=== PATIENT | female | born 1995 | race African-American/Black ===

== ENCOUNTER 2019-06-01 12:03 | Emergency (ER) | payer OTHER, SELFPAY ==
--- NOTE | ~2019-06-01 | XR_ITS ---
EXAMINATION: XR chest 2V 06/01/2019 16:01 INDICATION: Reduction of cough and congestion. Fluid. PROCEDURE: 2 view chest COMPARISON: No prior studies for comparison. FINDINGS: The lungs are clear. There is pectus excavatum. The cardiomediastinal silhouette is within normal limits. There are no pleural effusions. There is no pneumothorax suspected. IMPRESSION: 1: NO ACUTE CARDIOPULMONARY DISEASE. Reviewed, dictated and finalized at location A. T OFFICE ADMINISTRATOR
[2019-06-01 12:23] VITALS: BP 103/75; PULSE 125; RESP 18; TEMP 37.7; O2SAT 99
--- NOTE | 2019-06-01 12:31 | PC.NURSE ---
Pt provided with water and crackers for PO challenge at this time, per PA order.
--- NOTE | 2019-06-01 13:47 | ED.URI ---
HPI - URI/Sore Throat General Chief Complaint: Upper Respiratory Infection <Graham Mireles PA-C - Last Filed: 06/01/19 20:36> Stated Complaint: FLU B+, WANTS IV FLUIDS <Graham Mireles PA-C - Last Filed: 06/01/19 20:36> Time Seen by Provider: 06/01/19 12:14 <POLO Courtney Last Filed: 06/01/19 20:36> Source: patient <Graham Mireles PA-C - Last Filed: 06/01/19 20:36> Mode of arrival: ambulatory <POLO Courtney Last Filed: 06/01/19 20:36> Limitations: no limitations <Graham Mireles PA-C - Last Filed: 06/01/19 20:36> History of Present Illness HPI Narrative: Patient presents with chief complaint of wanting IV fluids after being diagnosed with flu B at the urgent care prior to arrival. Patient states that her symptoms originally began last with fever, congestion, sore throat, fatigue, headache. Patient states that her symptoms have improved except for some mild fatigue and a few episodes of vomiting since Friday. Patient states since receiving the Zofran today she has not had any additional vomiting. Patient denies any cough, chest pain, shortness of breath, urinary symptoms, fever. <Graham Mireles PA-C - Last Filed: 06/01/19 20:36> Related Data Allergies/Adverse Reactions: Allergies Allergy/AdvReac Type Severity Reaction Status Date / Time No Known Allergies Allergy Verified 06/01/19 12:27 <Graham Mireles PA-C - Last Filed: 06/01/19 20:36> Review of Systems Review of Systems: Narrative: CONSTITUTIONAL: Denies fever, chills, or sweats. EYES: Denies visual changes, redness, or discharge. ENT: Denies rhinorrhea, congestion, sore throat, or otalgia. CARDIOVASCULAR: Denies chest pain, palpitations, or edema. RESPIRATORY: Denies cough or dyspnea. GASTROINTESTINAL: Denies abdominal pain, nausea, vomiting, or diarrhea. GENITOURINARY: Denies dysuria or hematuria. SKIN: Denies rash or itching. MUSCULOSKELETAL: Denies back pain, joint pain, or myalgia. NEUROLOGIC: Denies headache, numbness, dizziness, or weakness. PSYCHIATRIC: Denies anxiety or depression. <Graham Mireles PA-C - Last Filed: 06/01/19 20:36> PMFSH Social History Social History: Social History Gender identity (if verbalized by the patient): Female <Graham Mireles PA-C - Last Filed: 06/01/19 20:36> Exam Narrative: Exam Narrative: GENERAL: Well-appearing, well-nourished, and in no acute distress. HEAD: Normocephalic, atraumatic. EYES: PERRLA and EOMI. ENT: Nares clear, no rhinorrhea or epistaxis. Lips and mucous membranes moist. Oropharynx without tonsillar hypertrophy exudate or other lesions. Bilateral TMs pearly pemberton nonbulging NECK: Supple. No adenopathy or masses. Range of motion intact CHEST: Clear to auscultation. No respiratory distress. No wheezes rales or rhonchi HEART: Regular rate and rhythm. No murmur heard. Normal peripheral pulses. ABDOMEN: Soft, nontender, nondistended, normal active bowel sounds. EXTREMITIES: Normal range of motion. No edema. SKIN: Warm, dry, no rash. NEURO: No focal deficits. Alert and oriented x3. PSYCH: Normal mood and affect. <POLO Courtney Last Filed: 06/01/19 20:36> Course Vital Signs Vital signs: Vital Signs Temperature 37.7 C H 06/01/19 12:23 Pulse Rate 125 H 06/01/19 12:23 Respiratory Rate 18 06/01/19 12:23 Blood Pressure 103/75 06/01/19 12:23 Pulse Oximetry 99 06/01/19 12:23 Temperature 37.3 C 06/01/19 14:04 Pulse Rate 80 06/01/19 16:53 Respiratory Rate 18 06/01/19 16:53 Blood Pressure 110/75 06/01/19 16:53 Pulse Oximetry 100 06/01/19 16:53 <POLO Courtney Last Filed: 06/01/19 20:36> Vital Signs Temperature 37.7 C H 06/01/19 12:23 Pulse Rate 125 H 06/01/19 12:23 Respiratory Rate 18 06/01/19 12:23 Blood Pressure 103/75 06/01/19 12:23 Pulse Oximetry 99 06/01/19 12:23 Temperature 37.3 C 06/01/19 14:04 Pulse Rate 80 06/01/19 16
--- NOTE | 2019-06-01 13:55 | PC.NURSE ---
Spoke with pt at this time who states that she is feeling okay and has held down the food and water without nausea.
[2019-06-01 14:04] VITALS: BP 107/73; PULSE 108; RESP 18; TEMP 37.3; O2SAT 98
[2019-06-01] MEDS: SODIUM CHLORIDE 0.9% IV 1,000 ML 999 ML IV CONT ×2 (14:23→15:48)
[2019-06-01 14:24] LABS: Hematocrit 43.9 % (37.0-47.0); Hemoglobin 14.5 g/dL (12.0-15.0); Immature Granulocyte Absolute 0.01 K/mm3 (0.00-0.031); Immature Granulocyte Percent A 0.3 % (0-0.5); Lymphocytes Absolute Auto 1.07 K/mm3 (0.9-3.2); Lymphocytes Percent Auto 31.2 % (18.3-44.2); Mean Corpuscular Hemoglobin 29.3 pg (26-34); Mean Corpuscular Volume 88.7 fl (80-100); Mean Platelet Volume 10.9 fl (7.4-10.4); Monocytes Absolute Auto 0.3 K/mm3 (0.1-0.6); Monocytes Percent Auto 9.9 % (2.6-8.5); Neutrophils Percent Auto 58.6 % (45.5-73.1); Platelet Count Result 142 k/mm3 (150-375); Red Blood Count 4.95 M/mm3 (4.2-5.4); Red Cell Distribution Width 11.9 % (11.5-14.5); White Blood Count 3.4 K/mm3 (4.5-10.0)
[2019-06-01 14:29] LABS: Add Urine Microscopic? YES; Appearance Urine Clear (Clear); Bilirubin Urine Negative (Negative); Blood Urine Negative (Negative); Color Urine Yellow (Yellow); Glucose Urine UA Negative (Negative); Ketones Urine 2+ mg/dL (Negative); Leukocyte Esterase Ur Trace LEU/UL (Negative); Mucus Urine Few /lpf; Nitrate Urine Negative (Negative); Protein Urine 3+ mg/dL (Negative); RBC Urine 0-2 /hpf (0-2); Specific Grav Ur 1.018 (1.001-1.035); Squamous Epithelial Cell Urine Moderate /hpf (Few); Urobilinogen Urine Negative mg/dL (<2.0)
[2019-06-01 14:35] LABS: Alanine Aminotransferase 77 U/L (4-35); Albumin Level 4.7 g/dL (3.5-5.1); Alkaline Phosphatase 55 U/L (38-126); Aspartate Amino Transferase 115 U/L (14-36); Bilirubin,Total 0.7 mg/dL (0.2-1.3); Blood Urea Nitrogen 8 mg/dL (7-17); Calcium 9.2 mg/dL (8.4-10.2); Carbon Dioxide 25 mmol/L (22-30); Chloride 95 mmol/L (98-107); Estimated CRCL calculation 124 ml/min; Estimated Glomerular Filt Rate > 60; Glucose 107 mg/dL (65-105); Potassium 3.7 mmol/L (3.4-5.0); Sodium 134 mmol/L (137-145)
[2019-06-01 15:20] VITALS: BP 109/65; PULSE 86
[2019-06-01 15:21] VITALS: BP 107/72; BP 114/71; PULSE 102; PULSE 110
--- NOTE | 2019-06-01 15:23 | ECG_ITS ---
Measurements Intervals [place] Rate: 77 P: 81 VA: 139 QRS: 75 QRSD: 90 T: 41 QT: 370 QTc: 421 Interpretive Statements SINUS RHYTHM WITH SINUS ARRHYTHMIA CANNOT RULE OUT SEPTAL INFARCT, AGE INDETERMINATE BORDERLINE ST-T WAVE ABNORMALITY- INFERIOR LEADS ABNORMAL ECG Electronically Signed On 06-01-2019 18:55:05 [employer]TRY [employer]EVEL PROJECT ENGINEER by Alex Mcfadden D.O.
[2019-06-01 15:49] VITALS: BP 110/58; PULSE 77; RESP 18; O2SAT 100
[2019-06-01 16:53] VITALS: BP 110/75; PULSE 80; RESP 18; O2SAT 100
== END 2019-06-01 16:54 | disposition home or self-care (01) ==
PROVIDERS: Physician Assistant; Emergency Provider Emergency Medicine; PCP Family Medicine
DX: J10.1 Influenza due to other identified influenza virus with other respiratory manifestations (principal)
CPT/HCPCS: 36415; 71046; 80053; 81001; 81025; 85025; 93005; 96360; 99283; J7030

== ENCOUNTER → 2020-08-21 15:55 | Outpatient (CLI) | payer OTHER, SELFPAY ==
--- NOTE | ~2020-08-21 | US_ITS ---
EXAMINATION: US OB >= 14 weeks Fetus DATE: 08/21/2020 16:31 INDICATION: survey TECHNIQUE: Multiple obstetric sonographic images performed. FINDINGS: No prior studies for comparison. There is a single living fetus in vertex presentation. The placenta is anterior without placenta pre via. Amniotic fluid volume is subjectively normal. cardiac activity and movement is noted with a heart rate of 151 beats per minute. The following anatomy was identified as normal: 4 chamber heart 3 vessel cord cord insertion kidneys urinary bladder stomach spine diaphragm ventricles cisterna magna cerebellum The following biometric data were obtained: BPD: 40mm corresponds to gestational age 18 weeks 1 days. Head circumference: 144 mm corresponds to gestational age 17 weeks 4 days. Abdominal circumference: 122 mm corresponds to gestational age 17 weeks 6 days. Femur length: 23 mm corresponds to gestational age 16 weeks 6 days. Head circumference to abdominal circumference ratio: 1.18 (normal range for expected gestational age is 1.08-1.28). Estimated weight: 194 grams +/- 29 grams using Hadlock method. IMPRESSION: 1: Single living intrauterine with an estimated gestational age of 17weeks 4days by current ultrasound measurements, with an EDC of 01/25/2021 in vertex presentation. 2. Normal survey. Reviewed, dictated and finalized at location A. IMPRESSION: 1: Single living intrauterine with an estimated gestational age of 17 weeks 4days by current ultrasound measurements, with an EDC of 01/25/2021 in lissette neelam presentation. 2. Normal survey.
== END ==
PROVIDERS: Visit Provider Obstetrics & Gynecology
DX: Z36.9 Encounter for antenatal screening, unspecified (principal); Z3A.00 Weeks of gestation of pregnancy not specified
CPT/HCPCS: 76805

== ENCOUNTER 2021-01-25 16:02 | Inpatient (IN) | payer OTHER, SELFPAY ==
[2021-01-25] VITALS (14 sets, daily range): BP systolic 106–143; BP diastolic 58–123; PULSE 65–95; RESP 16; TEMP 36.3–36.7
--- NOTE | 2021-01-25 16:02 | LDADM ---
This patient, Tiffanie Ball, was admitted to Labor/Delivery/Recovery 106 on 01/25/21 at 16:02. Plans for labor, pain management and were discussed with patient. Patient/family oriented to hospital policies and general routines including ID bracelet, bed and alarms, visiting hours, pain management, procedures, bathroom and other care routines, personal items, smoking policy, room service/diet and guest tray routines, security routines, and visiting hours. Patient/Family are encouraged to report perceived risks to care and to ask questions if they do not understand what they are told or what they should do. See OBIX for further documentation.
[2021-01-25] MEDS: OXYTOCIN 30 UNITS/NS 500 ML 30 UNITS/500 ML BAG 999 UNITS IV CONT (16:42)
[2021-01-25 16:46] LABS: Basophils Percent Auto 0.4 % (0.2-1.2); Eosinophils Absolute Auto 0.2 K/mm3 (0-0.3); Eosinophils Percent Auto 1.5 % (0-4.4); Hematocrit 38.1 % (37.0-47.0); Hemoglobin 12.6 g/dL (12.0-15.0); Immature Granulocyte Absolute 0.06 K/mm3 (0.00-0.031); Immature Granulocyte Percent A 0.6 % (0-0.5); Lymphocytes Absolute Auto 2.65 K/mm3 (0.9-3.2); Lymphocytes Percent Auto 24.9 % (18.3-44.2); Mean Corpuscular HGB Conc 33.1 g/dl (32-36); Mean Corpuscular Hemoglobin 29.2 pg (26-34); Mean Corpuscular Volume 88.4 fl (80-100); Monocytes Absolute Auto 0.9 K/mm3 (0.1-0.6); Monocytes Percent Auto 8.4 % (2.6-8.5); Neutrophils Absolute Auto 6.8 K/mm3 (1.3-6.7); Neutrophils Percent Auto 64.2 % (45.5-73.1); Platelet Count Result 257 k/mm3 (150-375); Red Blood Count 4.31 M/mm3 (4.2-5.4); Red Cell Distribution Width 13.5 % (11.5-14.5); White Blood Count 10.6 K/mm3 (4.5-10.0)
--- NOTE | 2021-01-25 16:55 | PM.OBPRVD ---
OB - Delivery Note Procedure Delivery date: 01/25/21 Procedure: Intrapartal events: None and Precipitous Labor < 3 hours Induction method: none Delivery monitor: external FHT and external uterine Route of delivery: Laceration Description: Perineal - 2nd Degree Delivery repair: vicryl (3-0) Specimen: Yes (placenta) Quantitative Blood Loss (ml): 125 Anesthesia type: Local Disposition: floor Baby Date of : 01/25/21 Weeks of gestation at delivery: 39 Infant gender: Male Weight (pounds): 5 Weight (ounces): 14 position: Right Occiput Anterior Placenta delivery description: Spontaneous cord vessel description: 3 Vessels score one minute: 9 score five minutes: 9
--- NOTE | 2021-01-25 16:57 | WPDOBADMIT ---
Obstetrics - Admit Note Admission Note: record reviewed. No pertinent additions to the history and/or any subsequent changes in the physical findings that are not consistent with the expected course of the were found. Additions to the history and/or subsequent changes in the physical findings follow. None.arrived complete and pushing AROM with meconium noted
--- NOTE | 2021-01-25 17:26 | PM.OBDSVD ---
DS: Admitting Diagnosis Discharge Date 01/27/21 Admitting Diagnosis labor DS: Discharge Diagnosis Discharge Diagnosis (1) (normal spontaneous vaginal delivery): Code(s): O80 - Encounter for full-term uncomplicated delivery Status: Acute OB - DS: Summary OB Procedures : Ultrasound OB Procedures Intrapartum: Spontaneous Vag Delivery OB Procedures: : None Peripartum Data Delivery Method: Natural Vaginal Laceration Description: Perineal - 2nd Degree complications: none Status at Discharge Functional status at discharge: independent ambulation Overall status at discharge: patient is progressing back to baseline Time Spent with Patient Time attestation: Total time spent providing and/or coordinating discharge services: DS: Data Data Completed and Pending Labs on day of discharge: Labs from last 24 hours 01/25/21 01/25/21 16:27 16:26 WBC 10.6 H RBC 4.31 Hgb 12.6 Hct 38.1 MCV 88.4 MCH 29.2 MCHC 33.1 RDW 13.5 Plt Count 257 D MPV 11.0 H Immature Gran % (Auto) 0.6 H Neut % (Auto) 64.2 Lymph % (Auto) 24.9 Clare % (Auto) 8.4 Eos % (Auto) 1.5 Baso % (Auto) 0.4 Lymph # (Auto) 2.65 Clare # (Auto) 0.9 H Eos # (Auto) 0.2 Baso # (Auto) 0.0 Abs Immat Gran (auto) 0.06 H Absolute Neuts (auto) 6.8 H Absolute Nucleated RBC 0.0 Nucleated RBC % 0.0 RPR Pending Discharge Plan Discharge Attending physician on discharge: Brianda Coreas Discharging Clinician: Brianda Coreas Anticipated Discharge Date/Time: 01/27/21 17:27 Patient Disposition: Home, Self-Care Activity: may shower and pelvic rest Diet: regular Patient Instructions: Antibiotic Form Stand Alone Forms: General Discharge Information Follow-up/Referrals: Brianda Coreas MD [Physician] - 6 Weeks Discharge Medications: Continued albuterol sulfate [ProAir HFA] 90 mcg/actuation HFA aerosol inhaler 1 inhalation INHALATION Q4H PRN (Reason: shortness of breath or wheezing) Qty: 8.5 RF: 3 DHA 200 mg capsule See Rx Instructions PO .COMPLEX Qty: 100 RF: 0 Date of admission: 01/25/21 16:02 Primary Care Provider: Estee Lin Admitting Provider: Brianda Coreas Attending physician on admission: Brianda Coreas Condition: Stable
--- NOTE | 2021-01-25 18:34 | LDADM ---
This patient, Tiffanie Mosher, was admitted to Labor/Delivery/Recovery 106 on 01/25/21 at 16:02. Plans for labor, pain management and were discussed with patient. Patient/family oriented to hospital policies and general routines including ID bracelet, bed and alarms, visiting hours, pain management, procedures, bathroom and other care routines, personal items, smoking policy, room service/diet and guest tray routines, infant security routines, and visiting hours. Patient/Family are encouraged to report perceived risks to care and to ask questions if they do not understand what they are told or what they should do. See OBIX for further documentation. Pt was in active labor on admission.
[2021-01-25] MEDS: WITCH HAZEL 40 PADS 1 PAD TOPICAL (19:06)
[2021-01-25] MEDS: BENZOCAINE 20% AER SPR (*SP) 56 GM CAN 1 SPRAY TOPICAL (19:07)
[2021-01-26] MEDS: IBUPROFEN 600 MG TABLET PO ×3 (00:24→15:45)
[2021-01-26 05:00] LABS: Hematocrit 31.3 % (37.0-47.0); Hemoglobin 10.3 g/dL (12.0-15.0)
--- NOTE | 2021-01-26 07:52 | P.PNOB_ITS ---
OB - PN: Subj Subjective Date/time seen: 01/26/21 07:52 Patient comments: no complaints and pain well controlled baby status: doing well OB - PN: Obj Data Labs CBC & Chem 7: 01/26/21 03:11 Labs: Laboratory Results - last 24 hr 01/25/21 01/25/21 01/26/21 16:26 16:27 03:11 WBC 10.6 H RBC 4.31 Hgb 12.6 10.3 L Hct 38.1 31.3 L MCV 88.4 MCH 29.2 MCHC 33.1 RDW 13.5 Plt Count 257 D MPV 11.0 H Immature Gran % (Auto) 0.6 H Neut % (Auto) 64.2 Lymph % (Auto) 24.9 Marshall % (Auto) 8.4 Eos % (Auto) 1.5 Baso % (Auto) 0.4 Lymph # (Auto) 2.65 Marshall # (Auto) 0.9 H Eos # (Auto) 0.2 Baso # (Auto) 0.0 Abs Immat Gran (auto) 0.06 H Absolute Neuts (auto) 6.8 H Absolute Nucleated RBC 0.0 Nucleated RBC % 0.0 Blood Type B Positive Antibody Screen Negative OB - PN A/P Plan day: 1 Plan: routine care Time Spent With Patient Time: Total time spent is greater than 50% in coordination of care (as documented) at patient's floor/unit and/or counseling patient: Exam : Bimanual exam- vagina & uterus: other (Uterus firm, nt @U)
[2021-01-26 08:20] VITALS: BP 117/70; PULSE 76; RESP 16; TEMP 36.6; O2SAT 100
[2021-01-26] MEDS: DOCUSATE SODIUM 100 MG CAPSULE PO (08:59)
[2021-01-26 12:00] VITALS: PULSE 88; RESP 16; O2SAT 99
[2021-01-26 12:12] VITALS: BP 118/78; PULSE 88; RESP 16; TEMP 37; O2SAT 99
[2021-01-26 13:52] LABS: Rapid Plasma Reagin Non-Reactive (NonReactive)
[2021-01-26 15:45] VITALS: BP 100/58; PULSE 83; RESP 14; TEMP 36.6; O2SAT 99
[2021-01-26 19:10] VITALS: BP 115/60; PULSE 89; RESP 16; TEMP 36.5; O2SAT 100
--- NOTE | 2021-01-26 20:18 | PC.NURSE ---
1000 Patient and FOB viewed the discharge video Mother & Baby Care, The First Two Weeks . Patient was given the opportunity and encouraged to ask questions. Patient verbalized understanding of information shared and has been given the mother/baby guide for home reference.
[2021-01-27] MEDS: IBUPROFEN 600 MG TABLET PO (00:21)
[2021-01-27 07:15] VITALS: BP 104/61; PULSE 70; RESP 16; TEMP 37; O2SAT 100
--- NOTE | 2021-01-27 11:15 | PM.OBPNVD ---
OB - PN: Subj Subjective Date/time seen: 01/27/21 11:15 Patient comments: no complaints and pain well controlled baby status: doing well OB - PN: Obj Data Labs CBC & Chem 7: 01/26/21 03:11 Labs: Laboratory Results - last 24 hr 01/25/21 16:26 RPR Non-reactive OB - PN A/P Plan day: 2 Plan: routine care, discharge home, follow up 6 weeks and other (declines bc) Comments: recommend not becoming for at least 9 months condoms and Phexxi reviewed Time Spent With Patient Time: Total time spent is greater than 50% in coordination of care (as documented) at patient's floor/unit and/or counseling patient: Exam : Bimanual exam- vagina & uterus: other (Uterus firm, nt @U)
== END 2021-01-27 12:00 | disposition home or self-care (01) | DRG 807 ==
LOC: ANHLDR 17:28 → ANHOB2 20:27
PROVIDERS: Admitting Provider Obstetrics & Gynecology Gynecology; PCP Family Medicine; Visit Provider Obstetrics & Gynecology Gynecology
DX: O62.3 Precipitate labor (principal); Z37.0 Single live birth; O70.1 Second degree perineal laceration during delivery; O99.824 Streptococcus B carrier state complicating childbirth; O77.0 Labor and delivery complicated by meconium in amniotic fluid; Z3A.39 39 weeks gestation of pregnancy
CPT/HCPCS: 36415; 85014; 85018; 85025; 86592; 86850; 86900; 86901; 88307; A9270; J2590